=== PATIENT | female | born 1960 | race Caucasian/White ===

== ENCOUNTER → 2016-07-11 | Outpatient (CLI) | payer BC | LOC: WI 08:42 | PROVIDERS: ATTEND Specialist | DX: Z12.31 Encounter for screening mammogram for malignant neoplasm of breast (principal) | CPT/HCPCS: 77067; G0202 ==

== ENCOUNTER → 2018-07-07 | Outpatient (CLI) | payer BC ==
--- NOTE | 2018-07-07 11:03 | WOMENS IMAGING REPORT ---
EXAM DESCRIPTION: LEFT DIAGNOSTIC MAMMO W/CAD COMPLETED DATE/TIME: 07/07/2018 8:27 am REASON FOR STUDY: R92.0 MAMMOGRAPHIC MICROCALCIFICATION FOUND ON DIAGNOSTIC IMAGING OF BREAST R92.0 MAMMOGRAPHIC MICROCALCIFICATION FOUND ON DX IMAGING OF COMPARISON: Multiple since 2011, most recently 06/23/2018 screening TECHNIQUE: Compression magnification craniocaudad and 90 mediolateral images of the breast recorded with digital acquisition. Left whole breast 90 mediolateral view LIMITATIONS: None. FINDINGS: BREAST LATERALITY: Left MASSES: No suspicious masses. CALCIFICATIONS: About 5 cm from the nipple, a group of microcalcifications are present, slightly vari able in size shape and density. These are new compared to prior studies. Stereotactic biopsy is rec ommended (BI-RADS 4) ARCHITECTURAL DISTORTION: None. DEVELOPING DENSITY: None. ASYMMETRY: None noted. OTHER: No other significant findings. Read with the assistance of CAD. .[facility] - R2 Dialysis Patient Care Technician Version 9.2 IMPRESSION: Cluster of microcalcifications left breast 5 cm from the nipple for which stereotactic s ampling is indicated (BI-RADS 4) ASSESSMENT: BIRADS 4: SUSPICIOUS FINDINGS. BIOPSY SHOULD BE PERFORMED IN THE ABSENCE OF CLINICAL CONT RA-INDICATION. BREAST DENSITY: b. There are scattered areas of fibroglandular density. BIRAD: 4 Suspicious. Biopsy should be performed in the absence of clinical contra-indication. RECOMMENDATION: RECOMMENDED FOLLOW UP: Stereotactic biopsy recommended for calcifications left breas t 12 o'clock position SPECIFIC INTERVENTION/IMAGING/CONSULTATION RECOMMENDED:Stereotactic biopsy recommended for calcificat ions left breast 12 o'clock position COMMUNICATION:Patient notified by letter COMMENT: The patient has been notified of the results by letter per [facility] requirements. Additional no tification policies are in place for contacting patient with suspicious or incomplete findings. Quality ID #[id number]: The [employer] recommends an annual screening mammogram for women aged 40 years or over. This facility utilizes a reminder system to ensure that all patients receive reminder letters, and/or direct phone calls for appointments. This includes reminders for routine scr eening mammograms, diagnostic mammograms, or other Breast Imaging Interventions when appropriate. Th is patient will be placed in the appropriate reminder system. TECHNICAL DOCUMENTATION: FINDING NUMBER: (1) ASSESSMENT: (1) JOB ID: [id number] [employer]- All Rights Reserved Reading location - IP/workstation name: [email or web address]
== END ==
LOC: WI 08:07
PROVIDERS: ATTEND Specialist
DX: R92.0 Mammographic microcalcification found on diagnostic imaging of breast (principal)